=== PATIENT | male | born 1935 | race Caucasian/White ===

== ENCOUNTER → 2023-10-20 15:27 | Outpatient (REF) | payer OTHER, SELFPAY | LOC: RAD 15:27 | PROVIDERS: ATTENDING PHYSICIAN Family Medicine | DX: I65.23 Occlusion and stenosis of bilateral carotid arteries (principal) | CPT/HCPCS: 93880 ==

== ENCOUNTER → 2023-11-16 08:38 | Outpatient (REF) | payer OTHER, SELFPAY | LOC: RAD 08:38 | PROVIDERS: ATTENDING PHYSICIAN Family Medicine | DX: R10.11 Right upper quadrant pain (principal) | CPT/HCPCS: 76700 ==

== ENCOUNTER → 2023-11-27 10:47 | Outpatient (REF) | payer OTHER, SELFPAY | LOC: RAD 10:47 | PROVIDERS: ATTENDING PHYSICIAN Family Medicine | DX: R10.11 Right upper quadrant pain (principal) | CPT/HCPCS: 74176 ==

== ENCOUNTER → 2023-12-25 13:05 | Outpatient (REF) | payer OTHER, SELFPAY | LOC: RAD 13:05 | PROVIDERS: ATTENDING PHYSICIAN Surgery Vascular Surgery; FAMILY PHYSICIAN Family Medicine | DX: I70.1 Atherosclerosis of renal artery (principal) | CPT/HCPCS: 76775; 93975 ==

== ENCOUNTER 2024-01-25 17:07 | Inpatient (IN) | payer OTHER, SELFPAY ==
[2024-01-25] VITALS (9 sets, daily range): BP systolic 98–172; BP diastolic 53–83; BMI 25.3
[2024-01-25 12:16] LABS: Glucose - Point of Care 113 mg/dl (70-99)
[2024-01-25 12:38] LABS: % Basophils 0.2 % (0-2); % Eosinophils 0.2 % (0-6); % Immature Granulocytes 0.7 % (0-0.5); % Lymphocytes 2.8 % (20.5-51.1); % Monocytes 9.6 % (1.7-9.3); % Neutrophils 86.5 % (42.2-75.2); Absolute Immature Granulocytes 0.1 10^3/uL (0-0.05); Absolute Lymphocytes 0.2 10^3/uL (1.2-3.4); Absolute Monocytes 0.8 10^3/uL (0.1-0.6); Absolute Neutrophils 7.5 10^3/uL (1.4-6.5); Hematocrit 39.6 % (39.0-52.0); Hemoglobin 13.5 g/dL (13.0-18.0); Mean Corp Hgb Conc. 34.1 g/dL (33.0-37.0); Mean Corpuscular Hgb 32.4 pg (27.0-31.0); Mean Platelet Volume 9.4 fL (7.4-10.4); Nucleated Red Blood Cells % 0 % (-); Platelet Count 175 10^3/uL (130-400); Red Blood Cell Count 4.17 10^6/uL (4.70-6.10); Red Cell Dist. Width 12.3 % (11.5-14.5); White Blood Cell Count 8.6 10^3/uL (4.8-10.8)
[2024-01-25 12:42] LABS: Urine Albumin Negative (Neg - Trace); Urine Bilirubin Negative (Negative); Urine Character Clear (Clear); Urine Color Yellow; Urine Glucose Negative (Negative); Urine Ketone Negative (Negative); Urine Leukocyte Negative (Negative); Urine Nitrite Negative (Negative); Urine Occult Blood Negative (Negative); Urine Urobilinogen Negative (Neg - 1+); Urine pH 6.5 (5.0-9.0)
[2024-01-25 12:54] LABS: ALT (SGPT) 24 U/L (0-50); AST (SGOT) 28 U/L (17-59); Alkaline Phosphatase 85 U/L (38-126); Blood Urea Nitrogen 29 mg/dl (9-20); Calcium 9.9 mg/dl (8.4-10.2); Carbon Dioxide 22 mmol/L (22-30); Chloride 104 mmol/L (98-107); Glucose 107 mg/dl (70-99); Potassium 4.7 mmol/L (3.5-5.1); Sodium 137 mmol/L (135-145); Total Bilirubin 1.2 mg/dl (0.2-1.3); eGFR 48.34
[2024-01-25 13:04] LABS: Troponin I < 0.012 ng/ml
--- NOTE | 2024-01-25 13:05 | ED.CVA ---
Addendum entered and electronically signed by Eunice Navas MD 01/25/24 16:16:
415 pm....pt noted to be in afib on monitor...formal ecg confirms this rhythm, rate 122, no acue ischemia. Given hx of ICH, will hold on AC at this moment. Will update admitting phyisician, Dr Mccall.
Original Note:
History of Present Illness
General
Chief Complaint: CVA/TIA Symptoms
Source: patient and spouse
Time Seen by Provider: 01/25/24 13:02
Onset of Stroke Symptoms
Onset of symptoms known: Yes
Date of onset of symptoms: 01/25/24
History of Present Illness
History of Present Illness:
This patient is an 88-year-old male who went to bed feeling his usual self. He woke at approximately 5 AM to use the bathroom without any difficulty or symptoms. Then, around 8 AM he awoke and says that he could not 'get it to work' in regards to
his right leg. confirms that he had little to no movement of his right leg despite his best efforts. Since arrival to the ER, these symptoms have improved/resolved. He did not come immediately because 'he is stubborn' as per family members
and was hoping it would go away. Patient denies associated symptoms including new numbness or tingling, headache, neck pain, chest pain, dyspnea, nausea, vomiting, or other complaints. Patient does not typically use a walker but tried to use a
walker today after he noticed the right leg weakness and nearly fell several times because he was unable to manage with the right leg weakness. His son who is at bedside states that he noticed that his gait was very limited when he was with him on
Thursday, described as very 'off' with a short gait while using a cane and staring at the ground to give himself concentration of how to not fall. states this has been going on for a few weeks.
Past History
Past History
ED Past Medical History: CVA (with right sided weakness, Numbness right sided of face and finger tips), HTN, Hypercholesterolemia and HI
ED Past Surgical History: Appendectomy and Cardiac (Stent)
Social History
Tobacco: Former smoker
Alcohol: None
Drug: None
Personal:
Living: with family
Phy Exam
Physical Exam
Physical Exam:
GENERAL: Alert , in no apparent distress
EYE: pupils equal and reactive
NECK: Supple, no significant adenopathy.
ENT: o/p clr, mmm.
CARDIAC: Regular rate and rhythm .
LUNGS: Clear breath sounds bilaterally, no acute respiratory distress, no wheezes/rales/rhonchi
ABDOMEN: Soft, without focal tenderness, no r/g, no cvat
NEUROLOGICAL: Alert and oriented, no focal neuro deficits except for slight weakness of right hand matcher leather parts but no drift
SKIN: Warm and dry, skin intact.
MUSCULOSKELETAL: No edema, well perfused.
PSYCH: Normal and appropriate interaction.
Scores
NIH Stroke Score
Level of Consciousness: 0 - Alert
LOC Questions: 0-Answers both correctly
LOC Commands: 0-Performs both correctly
Best Horizontal Gaze: 0-Normal
Visual Estrada: 0=Normal, no visual loss
Facial Palsy: 0=Normal, symmetrical
Motor - Right Arm: 0=No drift 10 seconds
Motor - Left Arm: 0=No drift 10 seconds
Motor - Right Le-No drift 5 seconds
Motor - Left Le-No drift 5 seconds
Limb Ataxia: 0-Absent
Sensation: 0-Normal
Best Language: 0-No aphasia
Dysarthria: 0-Normal
Extinction and Inattention: 0-No abnormality
Total Score:: 0
Course
Orders/Labs/Results
Orders:
Orders
01/25/24 12:26
Cardiac Monitoring- Treatment ONCE
01/25/24 12:28
Electrocardiogram (*1) Urgent
Reason for Study: TIA/Stroke
EKG- Treatment ONCE
01/25/24 12:29
Complete Blood Count/With Diff Urgent
Comprehensive Metabolic Panel Urgent
Troponin I Urgent
Urinalysis Reflex To Culture Urgent
Date Specimen was Collected: 01/25/24
Time Specimen was Collected: 12:27
01/25/24 13:05
CT Head W/o Iv Contrast Urgent
Comment:
Reason For Exam: R leg weakness, resolved
Abnormal Lab Results
01/25/24 01/25/24
12:15 12:29
RBC 4.17 L 10^6/uL
(4.70-6.10)
MCV 95.0 H fL
(80.0-94.0)
MCH 32.4 H pg
(27.0-31.0)
Abs Immat Gran (auto) 0.1 H 10^3/uL
(0-0.05)
Absolute Neuts (auto) 7.5 H 10^3/uL
(1.4-6.5)
Absolute Lymphs (auto) 0.2 L 10^3/uL
(1.2-3.4)
Absolute Monos (auto) 0.8 H 10^3/uL
(0.1-0.6)
Immature Gran % 0.7 H %
(0-0.5)
Neutrophils % 86.5 H %
(42.2-75.2)
Lymphocytes % 2.8 L %
(20.5-51.1)
Monocytes % 9.6 H %
(1.7-9.3)
BUN 29 H mg/dl
(9-20)
Creatinine 1.4 H mg/dL
(0.7-1.3)
Glucose 107 H mg/dl
(70-99)
POC Glucose 113 H mg/dl
(70-99)
01/25/24 12:29
01/25/24 12:29
Vital Signs
Initial and Last Documented VS:
Initial Vital Signs
Temp Pulse Resp BP Pulse Ox
100.1 F 74 18 172/80 95
01/25/24 12:07 01/25/24 12:07 01/25/24 12:07 01/25/24 12:07 01/25/24 12:07
Last Documented Vital Signs
Temp Pulse Resp BP Pulse Ox
100.1 F 72 13 119/53 94
01/25/24 12:07 01/25/24 15:00 01/25/24 15:00 01/25/24 15:00 01/25/24 15:00
*Critical Care Note
Total Time (30-74mins, 75-104mins- exclusive of procedures): Not Applicable
Update Note
Update Note:
Patient presents to the Emergency Department with ___right leg weakness
Number and Complexity of Problems Addressed at the Encounter
� Chronic conditions affecting care:
� Acute Exacerbation and/or Progression of Chronic Illness:
� Differential Diagnosis includes: But not limited to TIA, CVA, bleed intracranial, etc. etc.
Amount and/or Complexity of Data to be Reviewed and Analyzed
� I performed an independent evaluation of and my interpretation is:
EKG: Read by me, normal sinus rhythm, normal rate, normal axis, no acute ischemia
CT: Read by radiology NAD
Xrays:
Laboratory Studies: GFR 48 which is slightly altered from baseline of mid 50s.
Other:
� Review of other/old records reveals: Patient was admitted and treated for a left-sided intracranial hemorrhage in the basal ganglia. Discharge summary reviewed by me
� Clinical information was obtained by an independent historian: and son who are at bedside
� Prescriptions/Medications Considered but not given:plavix
� Further testing considered but not performed: Patient's NIH is equal to 0 and therefore is not a candidate for TNK, IAT or other emergent intervention related to stroke
Risk of Complications and/or Morbidity or Mortality of Patient Management
� Social determinants of health affecting care:
� Discussion with other providers (PCP, Hospitalists, Consultants, etc):
� Escalation of care including admission/observation vs risk of discharge considered: Pt remains neuro baseline, no new findings, no R le weakness. Suspect tia. Given pt on asa already, would typically consider plavix but will
avoid given hx of ICH. D/w hospitalist for admission.
ED Attending Note
-
Portions of this chart may have been created with voice recognition software.� Occasional wrong word or��sound alike� substitutions may have occurred due to the inherent limitations of voice recognition software.
Discharge Plan
Departure
Patient Disposition: Admit
Date of Disposition: 01/25/24
Time of Disposition: 15:29
Admit to: Telemetry
Presentation/result/management discussed w/ accepting MD/DO: Hospitalist
Condition: Good
Discharge Problem:
tia
Prescriptions:
No Action
atorvastatin 40 mg tablet
40 mg PO HS
donepezil 5 mg tablet
5 mg PO HS
allopurinol 100 mg tablet
100 mg PO HS
acetaminophen [Tylenol Extra Strength] 500 mg Tablet
1,000 mg PO HS
carvedilol 3.125 mg tablet
3.125 mg PO BID
lisinopril 10 mg tablet
10 mg PO DAILY
Rx Instructions:
01/25/2024, take with 5 mg for a total of 15 mg.
zinc 50 mg Tablet
50 mg PO DAILY
lisinopril 5 mg tablet
5 mg PO DAILY
Rx Instructions:
01/25/2024, take with 10 mg for a total of 15 mg.
B-complex with vitamin C [Super B Complex + C] Tablet
1 tab PO DAILY
cholecalciferol (vitamin D3) 50 mcg (2,000 unit) Tablet
50 mcg PO DAILY
magnesium oxide 400 mg magnesium Tablet
400 mg PO Q48H@0800
Ocuvite Adult 50 Plus 250 mg (90 mg-160 mg) Capsule
1 cap PO DAILY
aspirin 81 mg Tablet,Delayed Release (Dr/Ec)
81 mg PO DAILY
Referrals:
Mago Gilliam DO [Family Provider] -
Interventions
Interventions:
*Risk Screen - Suicide Last Done: 01/25/24 12:21
*General Assessment Last Done: 01/25/24 12:21
*Neglect/Abuse Screening Last Done: 01/25/24 12:21
ED- Fall Risk Assessment Last Done: 01/25/24 12:21
*ED COVID-19 Vaccine History Last Done: 01/25/24 12:07
ED- Pulmonary Assessment Last Done: 01/25/24 12:21
ED- Neurological Assessment Last Done: 01/25/24 12:21
ED- Cardiac Assessment Last Done: 01/25/24 12:21
Discharge Date and Time
Print Language: GUATEMALAN
[2024-01-25 15:55] LABS: Albumin 4.3 g/dl (3.5-5.0)
[2024-01-25] MEDS: CARDIZEM 5 MG IV (16:25)
[2024-01-25] MEDS: NSS 250 IV (16:27)
--- NOTE | 2024-01-25 16:58 | HPS.HSE ---
Family Physician
-
Family Physician: Mago Gilliam
Chief Complaint
-
Transient left leg weakness
History of Present Illness
Presents with transient right leg weakness noted this morning.
History is from the patient and as well as the . recognized that he was slower last week , taking his time to ambulate. Has not had a fall.
This morning around 8am when he woke up his right leg was weak and he could not stand up on that. also noticed the weakness. They called ambulance. By the time he came to the ER his symptoms resolved and his right leg is back to normal.
He had prior stroke and also had a brain bleed and had right-sided weakness that all resolved. He has some right arm tremor. Has right fingers weakness since the last stroke but otherwise no other residual deficit
Today he denies having headache, vision or speech problem. He always has some slurring of speech after the stroke.
Along with the symptoms he was feeling sweaty and he thought he may have had a fever. Denies any nausea vomiting or diarrhea. Denies any dysuria frequency of urine.
Denies any cough, shortness of breath or sore throat.
Found to be in new A-fib in the ER-denies prior history of arrhythmias or heart disease. No palpitations or chest pain.
Medical History
Past Medical History
Past Medical History: Reports CVA and HTN
Additional Past Medical History:
gout
Past Surgical History: Reports Appendectomy and Cardiac (coronary stent)
Social History
Tobacco: Former Smoker
Alcohol: Occasional
Personal:
Living: With Family
Family History
Family History: Not pertinent
Allergies / Home Medications
Allergies
Allergy/AdvReac Type Severity Reaction Status Date / Time
orange Allergy Unknown Unknown Verified 01/25/24 12:09
Home Medications
B-complex with vitamin C 1 tab PO DAILY Supplement 01/25/24
acetaminophen 500 mg tablet (Tylenol Extra Strength) 1,000 mg PO HS Pain 01/25/24
allopurinol 100 mg tablet 100 mg PO HS Gout 01/25/24
aspirin 81 mg tablet,delayed release 81 mg PO DAILY Blood Clot Prevention/Tx 01/25/24
atorvastatin 40 mg tablet 40 mg PO HS High Cholesterol 01/25/24
carvedilol 3.125 mg tablet 3.125 mg PO BID Blood Pressure 01/25/24
cholecalciferol (vitamin D3) 50 mcg (2,000 unit) tablet 50 mcg PO DAILY Supplement 01/25/24
donepezil 5 mg tablet 5 mg PO HS Neurological Condition 01/25/24
lisinopril 10 mg tablet 10 mg PO DAILY Blood Pressure 01/25/24
lisinopril 5 mg tablet 5 mg PO DAILY Blood Pressure 01/25/24
magnesium oxide 400 mg PO Q48H@0800 Supplement 01/25/24
pdenqhdv-xmv-pxarq9 250 mg-dha 90 mg-epa 160 oj-yfav-fqou-zeax capsule (Ocuvite Adult 50 Plus) 1 cap PO DAILY Supplement 01/25/24
zinc 50 mg tablet 50 mg PO DAILY Supplement 01/25/24
Allergy/Medication List:
Allergies
Allergy/AdvReac Type Severity Reaction Status Date / Time
orange Allergy Unknown Unknown Verified 01/25/24 12:09
Home Medications
B-complex with vitamin C 1 tab PO DAILY Supplement 01/25/24
acetaminophen 500 mg tablet (Tylenol Extra Strength) 1,000 mg PO HS Pain 01/25/24
allopurinol 100 mg tablet 100 mg PO HS Gout 01/25/24
aspirin 81 mg tablet,delayed release 81 mg PO DAILY Blood Clot Prevention/Tx 01/25/24
atorvastatin 40 mg tablet 40 mg PO HS High Cholesterol 01/25/24
carvedilol 3.125 mg tablet 3.125 mg PO BID Blood Pressure 01/25/24
cholecalciferol (vitamin D3) 50 mcg (2,000 unit) tablet 50 mcg PO DAILY Supplement 01/25/24
donepezil 5 mg tablet 5 mg PO HS Neurological Condition 01/25/24
lisinopril 10 mg tablet 10 mg PO DAILY Blood Pressure 01/25/24
lisinopril 5 mg tablet 5 mg PO DAILY Blood Pressure 01/25/24
magnesium oxide 400 mg PO Q48H@0800 Supplement 01/25/24
ipvmqumz-yil-twoiu3 250 mg-dha 90 mg-epa 160 ul-zspc-spov-zeax capsule (Ocuvite Adult 50 Plus) 1 cap PO DAILY Supplement 01/25/24
zinc 50 mg tablet 50 mg PO DAILY Supplement 01/25/24
Review of Systems
-
A 12 point ROS was completed and negative except as noted: Yes
Physical Exam
Vital Signs
Vital Signs
Temp Pulse Resp BP Pulse Ox
100.1 F 122 18 98/72 96
01/25/24 12:07 01/25/24 16:30 01/25/24 16:30 01/25/24 16:00 01/25/24 16:30
Physical Exam
General: Comfortable
HEENT: Moist mucous membranes
Respiratory: Clear
Cardiac: S1/S2, Irregular Rhythm and Tachycardia
GI: Soft and Non Tender
Neuro: AO x 3, Slurred Speech (slight slurring) and Tremors (right arm); No No Motor Deficits or Facial Droop
Psych: Calm
Laboratory Results
-
01/25/24 12:29
01/25/24 12:29
Laboratory Results
Total Bilirubin 1.2 mg/dl (0.2-1.3) 01/25/24 12:29
AST 28 U/L (17-59) 01/25/24 12:29
ALT 24 U/L (0-50) 01/25/24 12:29
Alkaline Phosphatase 85 U/L (38-126) 01/25/24 12:29
Troponin I < 0.012 ng/ml 01/25/24 12:29
Data Reviewed
-
CT Scan: Report Reviewed by me (ct head)
Lab Data: Labs Reviewed by me
Impression/Plan
-
Transient right leg weakness suggestive of TIA. No hypoglycemia. Patient with a prior history of cerebral ischemic infarct and also intracranial bleed suspected hypertension. He has mild right finger weakness and tremor after the last strokes.
Unclear etiology but with discovery of new A-fib rule out embolic stroke. Admit to telemetry. Consult neurology. Check an MRI. Continue with aspirin and statins. Check lipid profile and hemoglobin A1c. Permissive hypertension for 24 hours.
New onset of atrial fibrillation-asymptomatic without chest pain or shortness of breath. Hemodynamically stable. Clinically no signs of heart failure. Was given Cardizem. Continue with his home dose of Coreg and follow on telemetry. Check an
echocardiogram. Consult cardiology. Hold on anticoagulation with history of cerebral bleed.
Low-grade fever-no obvious focal infective symptoms or signs. Check blood cultures, chest x-ray,. Check COVID-19. UA negative. Hold on antibiotics and follow.
Hypertension- Allow permissive hypertension for 24 hours. Hold anti HTN meds
Hyperlipidemia-continue with statins.
Full code
--- NOTE | 2024-01-25 17:01 | CON.CAR ---
Consultation
Consultation Request
Date/Time Consultation Requested: 01/25/2024
Date/Time Consultation Performed: 01/25/2024
Requesting Provider: Dr. Mccall
Performing Provider: Dr. Cardenas (prior reimbursement analyst Dr. Rasheed)
Reason for Consultation: New atrial fibrillation
Medical History
-
Chief Complaint: Right leg weakness
History of Present Illness:
88-year-old gentleman with a past medical history of CAD with remote PCI(per review of his initial consultation with Dr Gutierrez, denies this history), hyperlipidemia, hypertension, CKD 3B, cognitive impairment and prior ischemic and
hemorrhagic strokes presents for evaluation right leg weakness. This has since resolved. He was then noted to be in atrial fibrillation with rapid ventricular response. We are asked to evaluate given new diagnosis of atrial fibrillation. He has
no sense of the arrhythmia. His Clarisa is at the bedside and states he usually gets around with a cane/walker.
Past Medical History
Past Medical History: CAD (PCI in 2015?), CVA (Prior history of ischemic, prior ICH in September 2022), HTN, Hypercholesterolemia, Renal Failure and Other (Arthritis, back pain)
Past Surgical History: Appendectomy, Tonsilectomy and Other (Cataract surgery bilaterally, rotator cuff surgery)
Social History
Tobacco: Former Smoker (Greater than 10 years)
Family History
Family History: Reviewed & Not Pertinent
Allergies / Home Medications
Allergy/AdvReac Type Severity Reaction Status Date / Time
orange Allergy Unknown Unknown Verified 01/25/24 12:09
�Medication �Instructions �Recorded �Confirmed �Type
B-complex with vitamin C 1 tab PO DAILY Supplement 01/25/24 01/25/24 History
acetaminophen 500 mg tablet 1,000 mg PO HS Pain 01/25/24 01/25/24 History
(Tylenol Extra Strength)
allopurinol 100 mg tablet 100 mg PO HS Gout 01/25/24 01/25/24 History
aspirin 81 mg tablet,delayed 81 mg PO DAILY Blood Clot 01/25/24 01/25/24 History
release Prevention/Tx
atorvastatin 40 mg tablet 40 mg PO HS High Cholesterol 01/25/24 01/25/24 History
carvedilol 3.125 mg tablet 3.125 mg PO BID Blood Pressure 01/25/24 01/25/24 History
cholecalciferol (vitamin D3) 50 50 mcg PO DAILY Supplement 01/25/24 01/25/24 History
mcg (2,000 unit) tablet
donepezil 5 mg tablet 5 mg PO HS Neurological Condition 01/25/24 01/25/24 History
lisinopril 10 mg tablet 10 mg PO DAILY Blood Pressure 01/25/24 01/25/24 History
lisinopril 5 mg tablet 5 mg PO DAILY Blood Pressure 01/25/24 01/25/24 History
magnesium oxide 400 mg PO Q48H@0800 Supplement 01/25/24 01/25/24 History
xdezykgj-eev-bdimb8 250 mg-dha 90 1 cap PO DAILY Supplement 01/25/24 01/25/24 History
mg-epa 160 rl-rvzh-qmfy-zeax
capsule (Ocuvite Adult 50 Plus)
zinc 50 mg tablet 50 mg PO DAILY Supplement 01/25/24 01/25/24 History
Review of Systems
-
All other systems: Negative unless noted
Physical Exam
Vital Signs
Temp Pulse Resp BP Pulse Ox
100.1 F 122 18 98/72 96
01/25/24 12:07 01/25/24 16:30 01/25/24 16:30 01/25/24 16:00 01/25/24 16:30
Lab Results
01/25/24 12:29
01/25/24 12:29
Troponin I < 0.012 ng/ml 01/25/24 12:29
Physical Exam
General: Well Developed and Well Nourished
Respiratory: Clear, Wheezes, Crackles and Rhonchi
Cardiac: S1/S2, Irregular Rhythm, Murmur (none), Rub and Peripheral Edema (none)
Neuro: AO x 3
Impression / Plan
-
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
atrial fibrillation.
Atrial fibrillation: New onset today, will continue with rate control.
-CHADS 2 VASC is a 6? for age, prior CVA/TIA, hypertension and CAD?. Anticoagulation is indicated however given recent history of hemorrhagic stroke will ask neurology to weigh in on his candidacy.
� Rate control--HR 100-130's but given TIA not a lot of bp room for agent right now, can be more agressive when ok to have normotension
� Echo 1 rates are controlled.
TIA: History of ischemic and hemorrhagic CVA
-allowing for permissive hypertension
-STATIN to continue
CAD: no cp, on aspirin, can discontinue if begin doac
-cotnineu bb, acei and statin
HTN; chronic
OBS:awake and calm
CKD: chronic
Data Reviewed
-
EKG: Tracing Personally Visualized and interpreted (Atrial fibrillation with rapid ventricular response nonspecific ST abnormality. Compared to the prior atrial fibrillation has replaced normal sinus rhythm.) and Other (tele with brief episodes of
short pause then sinus beats but the quickly returns to nsr. )
Medical Tests (Nuc Med, Echo etc): Report Reviewed by me (TTE 01/19/2019 normal biventricular size and systolic function, mild aortic regurgitation.)
[2024-01-25] MEDS: ARICEPT 5 MG PO (21:22)
[2024-01-25] MEDS: ELIQUIS 2.5 MG PO (21:22)
[2024-01-25] MEDS: LIPITOR 40 MG PO (21:22)
[2024-01-25] MEDS: TYLENOL 1000 MG PO (21:22)
[2024-01-25] MEDS: COREG 3.125 MG PO (21:22)
[2024-01-25] MEDS: ZYLOPRIM 100 MG PO (21:23)
[2024-01-26 03:05] VITALS: BP 123/58
[2024-01-26 06:07] LABS: Blood Urea Nitrogen 30 mg/dl (9-20); Calcium 9.8 mg/dl (8.4-10.2); Carbon Dioxide 24 mmol/L (22-30); Chloride 103 mmol/L (98-107); Estimated Creatinine Clearance 29 ml/min; Glucose 100 mg/dl (70-99); HDL Cholesterol 37 mg/dl; LDL Cholesterol, Calculated 28 mg/dl; Potassium 4.4 mmol/L (3.5-5.1); Sodium 136 mmol/L (135-145); Total Cholesterol 90 mg/dl (50-199); Triglyceride 125 mg/dl (10-149); Very Low Density Lipoprotein 25 mg/dl (0-30); eGFR 41.19
[2024-01-26 07:00] VITALS: BP 146/69
[2024-01-26 07:04] LABS: COVID-19 Antigen Positive (Negative)
[2024-01-26] MEDS: ASPIR LOW (ENTERIC COATED) 81 MG PO (08:41)
[2024-01-26] MEDS: COREG 3.125 MG PO ×2 (08:41→22:51)
[2024-01-26] MEDS: ELIQUIS 2.5 MG PO ×2 (08:41→22:51)
[2024-01-26 09:11] LABS: Glycohemoglobin (HgbA1c) 5.5 % (4.0-5.6)
--- NOTE | 2024-01-26 10:35 | CON.NEURO4 ---
Consultation - Neurology 4
-
CONSULTING PHYSICIAN: Quincy Levy MD(Neurology)
REFERRING PHYSICIAN: LLOYD Mccall
DICTATED BY: Quincy Levy
DATE/TIME OF REQUEST: January 25, 2024
DATE/TIME OF CONSULTATION: January 25, 2025. 10 AM
Reason for Consultation: Right leg weakness
History of Present Illness:
This is a 88year old right handed male who was admitted to the hospital with right leg weakness . He gives apast medical history of CAD with remote PCI, hyperlipidemia, hypertension, CKD 3B, cognitive impairment and prior ischemic and hemorrhagic
strokes. He had been in his usual state of health till 5 in the morning. He then went back to bed and at 8 had difficulty standing and walking. He is unable to move his right leg. He came to the emergency room later in the afternoon
At that time his right leg weakness had resolved. He was then noted to be in atrial fibrillation with rapid ventricular response.
Following admission he was noted to be COVID-positive
Past Medical History: Hypertension coronary disease chronic renal insufficiency and previous right basal ganglia hemorrhage
Surgical History:
Family History: Noncontributory
Social History: Stopped smoking
Allergies: No known drug allergies
Home Medications: Aspirin 81 mg Lipitor 40 allopurinol 100 lisinopril 5 carvedilol 3.125
Review of Symptoms:
Patient denies any fever, headache, chest pain, shortness of breath, GI or symptoms.
�Per the HPI.�All systems are reviewed negative except above.
�- Remove any of these problems that patient may have complained about in the HPI.
�- If patient is unresponsive, intubated or demented, say 'Per the HPI. I am unable to obtain a complete review of systems�because of patient's inability to provide history.'
Vital Signs: Temp Pulse Resp BP Pulse Ox
36.6 C 68 20 146/69 98
01/26/24 07:00 01/26/24 08:41 01/26/24 07:00 01/26/24 08:41 01/26/24 07:00
Physical Exam:
The patient is afebrile, heart sounds S1 and S2 are (regular / irregular), and chest is clear to auscultation bilaterally.
Head and neck normocephalic atraumatic extraocular movements intact neck is supple
Abdomen soft bowel sound present
Extremities no clubbing no cyanosis or edema
NIH Stroke Scale (if applicable):
I performed the NIH stroke scale on the patient on (date & time). The patient scored ( ) points on the NIH stroke scale assessment, which were assigned as follows:
Neurologic Examination:
The patient is awake, alert and oriented x 3. (He/She) is able to follow commands and answer questions appropriately. There is no aphasia or dysarthria. On cranial nerve assessment, pupils are 3 mm bilateral, round and reactive to light and
accommodation. Visual powell are full. Extraocular movements are intact. Facial sensations are intact and bilaterally symmetrical, there is no facial asymmetry. Hearing is intact bilaterally to normal conversation volume. Tongue palate and uvula
are midline. Sternocleidomastoid strengths are full bilaterally. Motor strengths are 5/5 bilateral upper and lower extremities on medical research [place] scale. There is no drift or involuntary movement noted. Deep tendon reflexes are 2+ bilateral
upper and lower extremities and Babinski is absent bilaterally. Sensations of pain, touch, temperature and vibration are intact and bilaterally symmetrical. There was no extinction noted on double simultaneous stimulation. Coordination is intact by
finger to nose bilaterally.
Lab Results: 01/25/24 12:29
01/26/24 05:13
Sodium 136 mmol/L (135-145) 01/26/24 05:13
Potassium 4.4 mmol/L (3.5-5.1) 01/26/24 05:13
BUN 30 mg/dl (9-20) H 01/26/24 05:13
Glucose 100 mg/dl (70-99) H 01/26/24 05:13
Calcium 9.8 mg/dl (8.4-10.2) 01/26/24 05:13
LDL Cholesterol, Calc 28 mg/dl 01/26/24 05:13
Neuro Imaging: CT of the head shows atrophy small vessel disease
Impression:
Mr. JUNIOR CERDA is a 88 year old M who has presented to the hospital with right leg weakness that has resolved and new onset atrial fibrillation
Patient has the following risk factors for their symptoms: Atrial fibrillation
Recommendations:
1. Eliquis 2.5 mg twice daily
2. Aspirin 81 mg daily
3. Cardiology evaluation
4. Echocardiogram
5. MRI/MRA of the head
6. PT/OT
Discussed patient care with:
Total Time Spent with Patient (in minutes): 30
Vital Signs and Labs
-
Vital Signs and Labs:
Vital Signs
Temp Pulse Resp BP Pulse Ox
36.6 C 68 20 146/69 98
01/26/24 07:00 01/26/24 08:41 01/26/24 07:00 01/26/24 08:41 01/26/24 07:00
Lab Results
01/25/24 12:29
01/26/24 05:13
Sodium 136 mmol/L (135-145) 01/26/24 05:13
Potassium 4.4 mmol/L (3.5-5.1) 01/26/24 05:13
BUN 30 mg/dl (9-20) H 01/26/24 05:13
Glucose 100 mg/dl (70-99) H 01/26/24 05:13
Calcium 9.8 mg/dl (8.4-10.2) 01/26/24 05:13
LDL Cholesterol, Calc 28 mg/dl 01/26/24 05:13
Allergies
-
Allergies
Allergy/AdvReac Type Severity Reaction Status Date / Time
orange Allergy Unknown Verified 01/25/24 20:04
--- NOTE | 2024-01-26 10:38 | CM ---
Chart reviewed
Admitted with TIA/New afib. Found to be covid +
Attempted to call pts at [phone] do complete admission assessment
No answer and unable to leave message - VM full
Will attempt to call again
--- NOTE | 2024-01-26 12:20 | W.PN.HOSP.TC ---
Today's Communication/Plan
-
Follow MRI of the brain
PT/OT eval
Assessment / Plan
Assessment / Plan
Transient right leg weakness suggestive of TIA. No hypoglycemia. Patient with a prior history of cerebral ischemic infarct and also intracranial bleed suspected hypertension. He has mild right finger weakness and tremor after the last strokes.
Unclear etiology but with discovery of new A-fib rule out embolic stroke.Consult neurology. Check an MRI brain and MRA head and neck. Continue with statins. LDL 23, HbA1c 5.5
Patient discharged on Eliquis by neurology-would stop aspirin especially with prior intracerebral bleed.
New onset of atrial fibrillation-asymptomatic without chest pain or shortness of breath. Hemodynamically stable. Clinically no signs of heart failure.In SR.Continue with his home dose of Coreg and follow on telemetry. Check an echocardiogram.
appt cardiology input. Started on AC by neurology.
Low-grade fever-sec to COVID 19 infection . No hypoxia or respiratory symptoms. Patient does not believe in COVID-19 infection and does not want any Paxlovid..
Hypertension- cw home HTN meds
Hyperlipidemia-continue with statins.
Full code
DW Cards today about their plan
Anticipated Discharge: Within 24 hours
Subjective/Interval History
-
Date of Service: January 26, 2024
Feels he has some sniffles. no sore throat, cough or shortness of breath.
He states he does not believe in COVID! he would not have allowed nasal swab if he would have known the indication.
no further right leg weakness.
Denies any chest pain or palpitations.
Objective Data
-
Labs:
Laboratory Results
01/26/24
05:13
Sodium 136
Potassium 4.4
Chloride 103
Carbon Dioxide 24
BUN 30 H
Creatinine 1.6 H
Glucose 100 H
Calcium 9.8
Vital Signs:
Vital Signs
Temp Pulse Resp BP Pulse Ox
97.8 F 68 20 146/69 98
01/26/24 07:00 01/26/24 08:41 01/26/24 07:00 01/26/24 08:41 01/26/24 07:00
I&O
01/25/24 01/26/24 01/27/24
06:59 06:59 06:59
Output Total 150 / 150
Balance -150 / -150
Review of Systems
-
EENT: Denies Sore Throat
Respiratory: Denies Cough
Neuro: Denies Dizzy
Physical Exam
-
General: No Apparent Distress
HEENT: Moist Mucous Membranes
Respiratory: Clear to Auscultation
Cardiac: Regular Rhythm and S1/S2; Negative Tachycardic
GI: Soft, Nontender, Nondistended and Normal Bowel Sounds
Neuro: AO x 3; Negative No Motor Deficits
Psych: Calm; Negative Confused
Data Reviewed
-
Labs: Labs Reviewed by me
--- NOTE | 2024-01-26 13:00 | W.PN.CD ---
Today's Communication / Plan
-
continue with eliquis
ok to stop aspirin to limit bleeding risk
outpatient echo to be done
I will sign off
d/w Dr Mccall
Impression / Plan
-
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
atrial fibrillation.
Atrial fibrillation: New onset 01/25/24 back NSR
-CHADS 2 VASC is a 6? for age, prior CVA/TIA, hypertension and CAD?. Anticoagulation is indicated however given recent history of hemorrhagic stroke, neurology ok with Eliquis. I would discontinue ASA when to reduce risk of recurrent ICH.
� Given COVID 19 will arrange follow up echo when recovered as not in distress and already with PANCHO/TIA.
TIA: History of ischemic and hemorrhagic CVA
-allowing for permissive hypertension
-STATIN to continue
CAD: no cp, ok to aspirin given Eliquis, can discontinue if begin doac
-cotnineu bb, acei and statin
HTN; chronic
OBS:awake and calm
CKD: chronic
Subjective:
he is without complaint except for being here.
Physical Exam
Vital Signs/Labs
Vital Signs
Temp Pulse Resp BP Pulse Ox
97.8 F 68 20 146/69 98
01/26/24 07:00 01/26/24 08:41 01/26/24 07:00 01/26/24 08:41 01/26/24 07:00
01/25/24 01/26/24 01/27/24
06:59 06:59 06:59
Actual Weight 71.123 kg
01/25/24 12:29
01/26/24 05:13
Triglycerides 125 mg/dl (10-149) 01/26/24 05:13
LDL Cholesterol, Calc 28 mg/dl 01/26/24 05:13
VLDL Cholesterol, Calc 25 mg/dl (0-30) 01/26/24 05:13
HDL Cholesterol 37 mg/dl 01/26/24 05:13
LAB Results
01/25/24
12:29
Troponin I < 0.012
Physical Exam
Constitutional: No acute distress
Cardiovascular: Rhythm & rate is regular and Pedal edema is absent
Respiratory: Respiratory effort normal, Lungs clear to auscul., Wheeze Absent and Crackles Absent
Neuro/Psych: AO x 3
Data Reviewed
-
Date of Service: January 26, 2024
EKG: Other (tele: Into NSR last night night now sinus )
[2024-01-26 13:33] VITALS: BP 120/64; PULSE 61; O2SAT 98
[2024-01-26 13:42] VITALS: BP 120/64; PULSE 62; O2SAT 98
[2024-01-26 15:00] VITALS: BP 147/78
[2024-01-26] MEDS: TYLENOL 1000 MG PO (22:50)
[2024-01-26] MEDS: ARICEPT 5 MG PO (22:51)
[2024-01-26] MEDS: LIPITOR 40 MG PO (22:51)
[2024-01-26] MEDS: ZYLOPRIM 100 MG PO (22:51)
[2024-01-26 23:34] VITALS: BP 127/65
[2024-01-27 03:57] VITALS: BP 159/84
[2024-01-27 07:40] VITALS: BP 116/82
[2024-01-27] MEDS: ELIQUIS 2.5 MG PO (08:35)
[2024-01-27] MEDS: COREG 3.125 MG PO (08:35)
--- NOTE | 2024-01-27 09:40 | W.PN.NEURO.1 ---
Documented by User: Amanda Garcia NP 01/27/24 12:29
Today's Communication / Plan
-
.
Neuro Assessment/Plan
Assessment
This is an 88-year-old male who presented to on 01/25/24 with report of transient RLE weakness lasting 1-2 hours, new onset Afib, and acute Covid infection.
-MRI brain 01/26/24: Moderate cerebral atrophy along with chronic small vessel ischemia in cerebral white matter. Multiple old insults to the brain. No acute MR findings involving the brain.
-MRA Head/Neck 01/26/24: Stenoses of approximately 80% in the proximal aspect of each vertebral artery and in the proximal left common carotid artery. 1 cm long segment of approximately 50% stenosis stenosis at the origin of the right common carotid
artery. 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 Short segment of approximately 80% stenosis in the distal left V3 segment. Moderate atherosclerotic disease in the right V4 segment. This extends into the lower portion of the
basilar artery. 2 cm long segment of approximately 60% stenosis in the proximal left subclavian artery.
I. TIA likely producing transient RLE weakness in the setting of newly discovered Afib, not on anticoagulation. MRI brain negative for acute stroke.
II. Multiple old ischemic infarcts.
III. Hx hemorrhagic stroke, presumed secondary to hypertension.
IV. Covid infection.
Plan
-Continue anticoagulation with Eliquis 2.5mg BID for stroke prevention in the setting of Afib.
-Discontinue aspirin therapy if okay with Cardiology as this will increase risk of recurrent intracranial hemorrhage.
-Goal normotension.
-TTE pending.
-LDL goal <70. LDL is 28. Continue home atorvastatin 40mg daily
-Goal normoglycemia, hbA1c is 5.5.
-NIHSS and neurological checks per unit guidelines.
-Provide patient with a stroke education packet.
-PT/OT evaluations.
-DVT prophylaxis with anticoagulation.
-Will sign-off. Please contact our Neurology service with any questions/concerns.
Subjective/Objective
Subjective Data
Date of Service: January 27, 2024
No acute events overnight. Patient denies any further RLE weakness. He endorses his chronic R hand numbness. He denies any headache, dizziness, vision changes, speech/swallow difficulty, focal weakness, nausea, chest pain, palpitations, and
shortness.
Objective Data
Vital Signs
Temp Pulse Resp BP Pulse Ox
98.4 F 64 18 116/82 97
01/27/24 07:40 01/27/24 08:35 01/27/24 07:40 01/27/24 07:40 01/27/24 07:40
Lab Results
01/25/24 12:29
01/26/24 05:13
Sodium 136 mmol/L (135-145) 01/26/24 05:13
Potassium 4.4 mmol/L (3.5-5.1) 01/26/24 05:13
BUN 30 mg/dl (9-20) H 01/26/24 05:13
Glucose 100 mg/dl (70-99) H 01/26/24 05:13
Calcium 9.8 mg/dl (8.4-10.2) 01/26/24 05:13
LDL Cholesterol, Calc 28 mg/dl 01/26/24 05:13
Patient Allergies
orange Allergy (Verified 01/25/24 20:04)
Unknown
LDL Level: <70, continue statin
Review of Systems
-
History Source: Patient
EENT: Negative Blurry Vision, Decreased Vision or Swallowing Difficulty
Respiratory: Negative Cough or Trouble Breathing
Cardiac: Negative Chest Pain or Palpitations
Abdomen/GI: Negative Nausea
Neuro: Numbness (chronic right hand numbness); Negative Dizzy, Headache, Weakness, Ataxia or Speech Problem
Physical Exam
-
General: Well Developed, Well Nourished and No Apparent Distress
Eyes: No Ptosis and PERRLA
HEENT: Normocephalic and Atraumatic
Neck: Full Range of Motion
Respiratory: No Dyspnea
GI: Non-distended
Extremities: No Clubbing, No Cyanosis and No Edema
Psych: Unremarkable
Extended Neurological Exam
Mood & Affect: Mood Unremarkable and Affect Unremarkable
Attention Span & Concentration: Awake, Alert and Interactive
Memory: Unremarkable (AAOx3) and Able to Recall
Tremor: Hand Tremor Absent
Involuntary Movement: None
Speech: Quality Unremarkable, Quantity Unremarkable and Rate of Production Unremarkable
Cranial Nerve II: Left Eye: Pupillary Reactivity Unremarkable, Pupillary Size Unremarkable and Visual Estrada Intact
Cranial Nerve II: Right Eye: Pupillary Reactivity Unremarkable, Pupillary Size Unremarkable and Visual Estrada Intact
Cranial Nerves III, IV, : Extraocular Movement: Extraocular Movement Full in all Directions
Cranial Nerve V: Facial Sensation: Intact to Light Touch
Cranial Nerve VII: Facial Symmetry: Normal Facial Symmetry
Cranial Nerve VIII: Hearing: Unremarkable Hearing to Normal Conversational Volume
Cranial Nerves IX, X: Palate Movement: Palate Elevation Symmetric
Cranial Nerve XI: Shoulder Shrug: Unremarkable
Cranial Nerve XII: Tongue Protusion: Midline
Muscle Strength, Overall: Full Throughout
Muscle Bulk & Tone: Bulk Unremarkable and Tone Unremarkable
Pronator Drift: No Drift in Upper Extremities and No Drift in Lower Extremities
Touch Sensation: Location of deficit (mildly reduced in right hand at baseline) and Double Simultaneous Stimulation Unremarkable
Coordination: Hfycmb-qayy-iuzcqc Testing Unremarkable
Babinski Sign: Absent Bilaterally
Data Reviewed
-
CT Head: Report Reviewed and Image Reviewed
MRI Head: Report Reviewed and Image Reviewed
MRA Head: Report Reviewed and Image Reviewed
MRA Neck: Report Reviewed and Image Reviewed
Labs: Report Reviewed
Lipid Profile: Report Reviewed
HgbA1C: Report Reviewed
Reviewed with: Physician and Patient
Medications
-
Active Medications
Generic Name Dose Route Start Last Admin
Trade Name Freq PRN Reason Stop Dose Admin
Acetaminophen 1,000 mg 01/25/24 22:00 01/26/24 22:50
Acetaminophen 500 Mg Tablet PO 02/22/24 21:59 1,000 mg
HS SARAHI Administration
Acetaminophen 650 mg 01/25/24 19:57
Acetaminophen 325 Mg Tablet PO 02/22/24 19:56
Q4HPRN PRN
mild pain /fever >100.4
Allopurinol 100 mg 01/25/24 22:00 01/26/24 22:51
Allopurinol 100 Mg Tablet PO 02/22/24 21:59 100 mg
HS SARAHI Administration
Apixaban 2.5 mg 01/25/24 20:00 01/27/24 08:35
Apixaban (Eliquis) 2.5 Mg Tablet PO 02/22/24 19:59 2.5 mg
BID SARAHI Administration
Atorvastatin Calcium 40 mg 01/25/24 22:00 01/26/24 22:51
Atorvastatin (Lipitor) 40 Mg Tablet PO 02/22/24 21:59 40 mg
HS SARAHI Administration
Carvedilol 3.125 mg 01/25/24 20:00 01/27/24 08:35
Carvedilol 3.125 Mg Tablet PO 02/22/24 19:59 3.125 mg
BID SARAHI Administration
Donepezil HCl 5 mg 01/25/24 22:00 01/26/24 22:51
Donepezil 5 Mg Tablet PO 02/22/24 21:59 5 mg
HS SARAHI Administration
Sodium Chloride 0 flush 01/25/24 19:00
Sodium Chloride 0.9% (Flush) Syringe IV 02/22/24 18:59
PER PROTOCOL SARAHI
Home Medications
�Medication �Instructions �Recorded
B-complex with vitamin C 1 tab PO DAILY Supplement 01/25/24
acetaminophen 500 mg tablet 1,000 mg PO HS Pain 01/25/24
(Tylenol Extra Strength)
allopurinol 100 mg tablet 100 mg PO HS Gout 01/25/24
aspirin 81 mg tablet,delayed 81 mg PO DAILY Blood Clot 01/25/24
release Prevention/Tx
atorvastatin 40 mg tablet 40 mg PO HS High Cholesterol 01/25/24
carvedilol 3.125 mg tablet 3.125 mg PO BID Blood Pressure 01/25/24
cholecalciferol (vitamin D3) 50 50 mcg PO DAILY Supplement 01/25/24
mcg (2,000 unit) tablet
donepezil 5 mg tablet 5 mg PO HS Neurological Condition 01/25/24
lisinopril 10 mg tablet 10 mg PO DAILY Blood Pressure 01/25/24
lisinopril 5 mg tablet 5 mg PO DAILY Blood Pressure 01/25/24
magnesium oxide 400 mg PO Q48H@0800 Supplement 01/25/24
vltvgpgn-gon- 250 mg-dha 90 1 cap PO DAILY Supplement 01/25/24
mg-epa 160 [id number]-nlpa-vfjm-zeax
capsule (Ocuvite Adult 50 Plus)
zinc 50 mg tablet 50 mg PO DAILY Supplement 01/25/24
NIH Stroke Score
Subsequent NIH Scale
Date of Subsequent NIH Scale: 01/27/24
Time of Subsequent NIH Scale: 09:30
NIH Stroke Score
Level of Consciousness: 0 - Alert
LOC Questions: 0-Answers both correctly
LOC Commands: 0-Performs both correctly
Best Horizontal Gaze: 0-Normal
Visual Estrada: 0=Normal, no visual loss
Facial Palsy: 0=Normal, symmetrical
Motor - Right Arm: 0=No drift 10 seconds
Motor - Left Arm: 0=No drift 10 seconds
Motor - Right Le-No drift 5 seconds
Motor - Left Le-No drift 5 seconds
Limb Ataxia: 0-Absent
Sensation: 1-Mild loss
Best Language: 0-No aphasia
Dysarthria: 0-Normal
Extinction and Inattention: 0-No abnormality
Total Score:: 1
Modified Yevgeniy (mRS) Score
Modified Yevgeniy Scale (mRS): No symptoms
Score: 0

Documented by User: Quincy Levy MD 01/27/24 15:26
NIH Stroke Score
NIH Stroke Score
Total Score:: 1
Modified [place] (mRS) Score
Score: 0
--- NOTE | 2024-01-27 11:39 | PN.CDI ---
CDI
- -
CDI:
Physician Documentation Request
Admit Date: 01/25/24 17:07
Dear Doctor Cal,
Clinical Indicators:
Patient admitted with TIA.
01/25, PN, 'New onset of atrial fibrillation'
01/25 Cardiology PN, 'tele: Into NSR last night night now sinus'
If possible, please provide further specificity regarding atrial fibrillation, such as:
Paroxysmal atrial fibrillation - terminates spontaneously or with intervention within 7 days of onset
Other - please specify
Unable to further specify
Use of terms such as suspected, likely, concern for, or probable (associated with a specific diagnosis that is being evaluated, monitored, or treated as if it exists) are acceptable and can be coded in the inpatient setting, when documented at the
time of discharge.
Thank you,
BRANDI Sheets RN
CDI Specialist
available via tiger text
Please use your independent medical judgment in providing your response.
[2024-01-27 11:45] VITALS: BP 109/51
--- NOTE | 2024-01-27 14:03 | W.PN.HOSP.TC ---
Today's Communication/Plan
-
DC
Assessment / Plan
Assessment / Plan
Transient right leg weakness suggestive of TIA. No hypoglycemia. Patient with a prior history of cerebral ischemic infarct and also intracranial bleed suspected hypertension. He has mild right finger weakness and tremor after the last strokes.
Unclear etiology but with discovery of new A-fib embolic stroke is a possibility .appt neurology input. MRI brain no acute stroke. Continue with statins. LDL 23, HbA1c 5.5
Patient intiated on Eliquis by neurology-would stop aspirin especially with prior intracerebral bleed.
New onset of atrial fibrillation-asymptomatic without chest pain or shortness of breath. Hemodynamically stable. Clinically no signs of heart failure.Remains SR.Continue with his home dose of Coreg and follow on telemetry. echocardiogram as op.
appt cardiology input. Started on AC by neurology.
Low-grade fever-sec to COVID 19 infection . No hypoxia or respiratory symptoms. Patient does not believe in COVID-19 infection and does not want any Paxlovid. Remains without any fevers, hypoxia or shortness of breath. His is also having
symptoms and I advised him strongly to consider checking her for COVID and get treatments as appropriate.
Hypertension- cw home HTN meds
Hyperlipidemia-continue with statins.
Full code
PT -recs HH
DC home with home health
Total time of dc 32 min
Anticipated Discharge: Today
Subjective/Interval History
-
Date of Service: January 27, 2024
Denies any further right leg weakness. All back to baseline.
Denies any shortness of breath or chest pain or palpitations.
no fever, chills or sore throat.
Feeling bit weak. Did okay with the PT.
His is also now troubled with respiratory symptoms-advised him to let her know that he is COVID-positive and get it checked out.
Objective Data
-
Vital Signs:
Vital Signs
Temp Pulse Resp BP Pulse Ox
97.9 F 52 16 109/51 97
01/27/24 11:45 01/27/24 11:45 01/27/24 11:45 01/27/24 11:45 01/27/24 11:45
I&O
01/26/24 01/27/24 01/28/24
06:59 06:59 06:59
Intake Total 610 / 610
Output Total 150 / 150
Balance -150 / -150 610 / 610
Review of Systems
-
Constitutional: Denies Fever
EENT: Denies Sore Throat
Respiratory: Denies Cough or Trouble Breathing
Cardiac: Denies Chest Pain
Abdomen/GI: Denies Abdominal Pain, Nausea or Vomiting
Neuro: Denies Headache or Weakness
Physical Exam
-
General: No Apparent Distress
HEENT: Moist Mucous Membranes
Respiratory: Clear to Auscultation and Non Labored Respirations; Negative Wheezes, Crackles or Accessory Resp Muscle Use
Neuro: AO x 3 and No Motor Deficits
Psych: Calm
--- NOTE | 2024-01-27 14:12 | W.DS.TRANS ---
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
-
Discharge Instructions:
Discharge Diagnosis/Procedures TIA, transient new paroxysmal atrial
fibrillation, COVID-19 infection
Diet Low Cholesterol
Activity As tolerated
Driving Restrictions Not until seen by your Dr
Others Tests Echocardiogram at [facility] 02/09/2024
10:30 AM arrive at registration at 10 AM.
Other Services PT,OT
Instructions:
Stand-Alone Forms:
Changes to Home Medications: Yes
Discharge Medications:
DC Medications w/original date entered in [employer]
B-complex with vitamin C 1 tab PO DAILY Supplement 01/25/24
acetaminophen 500 mg tablet (Tylenol Extra Strength) 1,000 mg PO HS Pain 01/25/24
allopurinol 100 mg tablet 100 mg PO HS Gout 01/25/24
atorvastatin 40 mg tablet 40 mg PO HS High Cholesterol 01/25/24
carvedilol 3.125 mg tablet 3.125 mg PO BID Blood Pressure 01/25/24
cholecalciferol (vitamin D3) 50 mcg (2,000 unit) tablet 50 mcg PO DAILY Supplement 01/25/24
donepezil 5 mg tablet 5 mg PO HS Neurological Condition 01/25/24
lisinopril 10 mg tablet 10 mg PO DAILY Blood Pressure 01/25/24
lisinopril 5 mg tablet 5 mg PO DAILY Blood Pressure 01/25/24
magnesium oxide 400 mg PO Q48H@0800 Supplement 01/25/24
ovszjbaj-tfs-yypgs4 250 mg-dha 90 mg-epa 160 xc-sepj-mfmz-zeax capsule (Ocuvite Adult 50 Plus) 1 cap PO DAILY Supplement 01/25/24
zinc 50 mg tablet 50 mg PO DAILY Supplement 01/25/24
apixaban 2.5 mg tablet (Eliquis) 2.5 mg PO BID #60 tabs 01/27/24
Home Medication Changes
new medication-Eliquis
Change in medication-discontinue aspirin
Pending Results: No
--- NOTE | 2024-01-27 14:26 | CM ---
Spoke with pts Clarisa
Pt lives with his in a 1 story home, 2 steps to enter
Ambulates with cane or rolling walker. Performs ADL's. takes care of household needs
DME - rolling walker, cane
SNF - has been in past - unable to recall name
HH - has had in past - unable to call agency
Has ride at d/c
PCP - Dr Mago Gilliam
Pharm - [facility]
PT recommending HH - no preference per pts
TT sent to [facility] Liaison for HH needs
Pt for d/c today
Discussed IMM with pts
She will transport home
[facility]
[2024-01-27 15:42] VITALS: BP 133/61
--- NOTE | 2024-01-27 16:27 | PTCARENOTE ---
pt discharged to care of spouse. d/c instructions reviewed with pt prior to d/c, pt verbalized understanding and had no questions. IV/telemetry removed. taken to main lobby in wheelchair by myself. ot has all personal belongings on d/c
--- NOTE | 2024-01-28 08:56 | VNURNOTE ---
[facility] referral completed in [facility] after review of chart 01/26. Unable to reach patient 2x and voice mailbox full.
== END 2024-01-27 16:00 | disposition home health service (06) | DRG 69 ==
LOC: 3 WEST ACU 17:07
PROVIDERS: ADMITTING PHYSICIAN Internal Medicine; CONSULT PHYSICIAN Internal Medicine Cardiovascular Disease; CONSULT PHYSICIAN Psychiatry & Neurology Neurology; EMERGENCY PHYSICIAN Emergency Medicine; FAMILY PHYSICIAN Family Medicine
DX: G45.9 Transient cerebral ischemic attack, unspecified (principal); U07.1 COVID-19; I48.0 Paroxysmal atrial fibrillation; I10 Essential (primary) hypertension; E78.5 Hyperlipidemia, unspecified
CPT/HCPCS: 70450; 70544; 70548; 70551; 71046; 80048; 80053; 80061; 81003; 82962; 83036; 84484; 85025; 87040; 87811; 93005; 96361; 96374; 97162; 97166; 99285; A9585

== ENCOUNTER → 2024-02-09 09:32 | Outpatient (REF) | payer OTHER, SELFPAY | LOC: RCS 09:32 | PROVIDERS: ATTENDING PHYSICIAN Internal Medicine Cardiovascular Disease; FAMILY PHYSICIAN Family Medicine | DX: I48.0 Paroxysmal atrial fibrillation (principal) | CPT/HCPCS: 93306 ==

== ENCOUNTER → 2024-03-01 09:49 | Outpatient (REF) | payer OTHER, SELFPAY | LOC: RAD 09:49 | PROVIDERS: ATTENDING PHYSICIAN Family Medicine | DX: I65.23 Occlusion and stenosis of bilateral carotid arteries (principal); Z86.73 Personal history of transient ischemic attack (TIA), and cerebral infarction without residual deficits | CPT/HCPCS: 70496; 70498; Q9967 ==

== ENCOUNTER → 2024-05-06 10:19 | Outpatient (REF) | payer OTHER, SELFPAY | LOC: RAD 10:19 | PROVIDERS: ATTENDING PHYSICIAN Surgery Vascular Surgery; FAMILY PHYSICIAN Family Medicine | DX: I65.23 Occlusion and stenosis of bilateral carotid arteries (principal) | CPT/HCPCS: 93880 ==